=== PATIENT | male | born 2000 | race Caucasian/White ===

== ENCOUNTER 2021-01-02 16:17 | Emergency (ER) | payer OTHER, MEDICAID, SELFPAY ==
[2021-01-02 16:18] VITALS: BP 145/65; PULSE 103; RESP 14; TEMP 37.1; O2SAT 100; BMI 26.4
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
[2021-01-02] MEDS: Smz/Tmp Ds Tablet 1 TABLET PO (16:50)
[2021-01-02] MEDS: Cephalexin 250 MG Capsule 500 MG PO (16:50)
[2021-01-02 18:34] VITALS: BP 148/99; PULSE 99; RESP 16; O2SAT 99
--- NOTE | 2021-01-02 18:35 | ED.RN ---
PT AND MOTHER EDUCATED ON WRITTEN AND VERBAL DISCHARGE INSTRUCTIONS, HOME GOING PRESCRIPTIONS AND REFERRAL TO PCP. EDUCATED TO TAKE ANTIBIOTICS UNTIL THE PRESCRIPTION IS COMPLETED. PT VERBALIZES UNDERSTANDING OF INSTRUCTIONS AND DENIES ANY FURTHER QUESTIONS. AMBULATORY OUT OF DEPT WITH MOTHER.
== END 2021-01-02 18:34 | disposition home or self-care (01) ==
PROVIDERS: Emergency Provider Student in an Organized Health Care Education/Training Program
DX: M70.52 Other bursitis of knee, left knee (principal); S80.212A Abrasion, left knee, initial encounter; S50.812A Abrasion of left forearm, initial encounter; V86.56XA Driver of dirt bike or motor/cross bike injured in nontraffic accident, initial encounter; Y93.55 Activity, bike riding; Y92.89 Other specified places as the place of occurrence of the external cause; Y99.8 Other external cause status
CPT/HCPCS: 73564; 99283

== ENCOUNTER 2023-06-12 10:14 | Emergency (ER) | payer MEDICAID, SELFPAY ==
[2023-06-12 10:15] VITALS: BP 132/78; PULSE 64; RESP 16; TEMP 36.6; O2SAT 100; BMI 25.2
--- NOTE | 2023-06-12 10:24 | EDS_ITS ---
HPI History of Present Illness Chief Complaint: Abd Pain [facility] Medical History no medical history Home Medications cephalexin 500 mg capsule 500 mg PO Q6 #40 CAPSULES 01/02/21 [Rx Last Taken Unknown] naproxen 500 mg tablet 500 mg PO BID PRN #20 tabs 01/02/21 [Rx Last Taken Unknown] sulfamethoxazole 800 mg-trimethoprim 160 mg tablet 1 tablet PO BID #14 TABLETS 01/02/21 [Rx Last Taken Unknown] omeprazole 20 mg capsule,delayed release 20 mg PO DAILY #30 CAPSULES 06/12/23 [Rx Last Taken Unknown] ondansetron 4 mg disintegrating tablet 4 mg PO Q8H PRN nausea and vomiting 3 days #9 tabs 06/12/23 [Rx Last Taken Unknown] Allergy/AdvReac Type Severity Reaction Status Date / Time No Known Allergies Allergy Verified 06/12/23 10:16 Social History (Updated 08/13/19 @ 12:54 by Darlene Monreal DIRECTOR SYSTEMS, DIRECTOR SYSTEMS-C) Smoking Status: Never smoker EXAM Physical Exam Const Vital Signs: 06/12/23 10:15 06/12/23 13:31 Temperature 98 F Temperature Source Temporal Pulse Rate 64 82 Respiratory Rate 16 16 Blood Pressure 132/78 H 129/79 H Blood Pressure Mean 96 Pulse Ox 100 97 Oxygen Delivery Method Room Air MDM MDM MDM Narrative Medical decision making narrative: HISTORY OF PRESENT ILLNESS: 22-year-old male here for 5 days abdominal pain nausea vomiting. He states he has diffuse abdominal pain. No history abdominal surgeries. Last bowel moveme nt several days ago. No melena or hematochezia noted no urinary symptoms noted. N Notes drinking alcohol just prior to this starting. No history of pancreatitis REVIEW OF SYSTEMS: Pertinent positives: Abdominal pain Pertinent negatives: Chest pain, constipation PHYSICAL EXAM: Nursing triage notes reviewed, Vital signs reviewed Constitutional: please see mdm HENT: MMM Eyes: Pupils equal round and reactive to light, Extraocular muscles intact Neck: No stridor, no JVD, full neck ROM Lungs: Clear to auscultation, No wheezing or rales. No increased work of breathing, no conversational dyspnea, no accessory muscle use, no nasal flaring. No respiratory distress noted Heart: Regular rate and rhythm, No murmurs, No rubs and No gallops, 2+ distal pulses (radial, femoral, posterior tibial) in all extremities Abdomen: Soft, there is no tenderness, rigidity, rebound or guarding, no obvious peritoneal signs, no palpable pulsatile abdominal masses, no auscultated abdominal bruit : No CVAT Extremities: No edema Neuro: No focal neurological deficits, cranial nerves II through XII intact, 5/5 strength in all extremities. Intact sensation to light touch in all extremities, 2+ reflexes bilateral patella tendons. Normal gait. No ataxia. Skin: No rash or lesions noted MEDICAL DECISION MAKING: Chief Complaint: Abdominal pain External records reviewed: No prior ED evaluations, imaging of the abdomen pelvis noted in the chart Factors affecting care: none Social determinants of health: none History obtained from others: none [] Consults: none ALL IMAGES (IF OBTAINED) HAVE BEEN PERSONALLY REVIEWED AND INTERPRETED BY MYSELF. CBC without leukocytosis, severe anemia, no thrombocytopenia. LFTs show no evidence of hepatobiliary pathology. Lipase is wnl indicating no pancreatic inflammation. BMP with evidence of severe dehydration with hypokalemia, EBONI, no anion gap to suggest endorgan hypoperfusion MDM Narrative: Patient was hemodynamically stable, afebrile, nontoxic-appearing I considered the following differential diagnosis: Gastritis, GERD, pancreatitis, acute cholecystitis, perforation or obstruction The patient abdominal exam was not consistent with an acute surgical process such as obstruction or perforation. Did obtain labs to rule out signs of systemic inflammation, hepatobiliary obstruction, signs of pancreatitis. Labs are remarkable for dehydration and acute kidney injury. Repeat abdominal exam is benign. I offer the patient another liter of fluid, further ED evaluation repeat labs. He stated he would like to go back to work. He refused further ED evaluation, observation, IV fluids or admission at this time. He stated he would go home take Zofran every 8 hours and drink plenty of oral fluids. Return if symptoms change or worsen. The patient is appropriate discharge home with oral Zofran. The patient and/or family, caregivers express understanding. The patient and/or family, caregivers agrees with the plan. Shared decision making: I will have a discussion with the patient and or visitors regarding risk/benefits of further testing or admission. They will be made aware of of the risk/benefits inherent in this decision they will be given the opportunity to voice understanding. Total critical care time today provided was at least 0 minutes. This excludes separately billable procedures. Critical care time (if documented) is secondary to the patient having high probability of clinically significant/life threatening deterioration in the patient's condition which required my urgent intervention. Impression: 1. Acute abdominal pain 2. Nausea and vomiting 3. EBONI 4. Dehydration Dispo: Discharge Lab Data Attestation: I reviewed the patient's lab results. Labs: Laboratory Results - last 24 hr 06/12/23 11:55 WBC 6.9 RBC 5.22 Hgb 16.7 H Hct 49.3 MCV 94.4 H MCH 32.0 MCHC 33.9 RDW Std Deviation 43.0 RDW Coeff of Mariana 12.3 Plt Count 205 MPV 11.4 Immature Gran % (Auto) 0.400 Neut % (Auto) 72.2 H Lymph % (Auto) 16.1 L Dougherty % (Auto) 8.4 Eos % (Auto) 2.2 Baso % (Auto) 0.7 Absolute Neuts (auto) 5.0 Absolute Lymphs (auto) 1.12 Nucleated RBC % 0 Sodium 137 Potassium 3.4 L Chloride 99 Carbon Dioxide 31.0 Anion Gap 7 BUN 20 H Creatinine 2.06 H Estim Creat Clear Calc 61.74 Est GFR (MDRD) Af Amer 52 L Est GFR (MDRD) Non-Af 43 L BUN/Creatinine Ratio 9.7 L Glucose 91 Calcium 9.3 Total Bilirubin 0.90 Direct Bilirubin 0.24 AST 20 ALT 56 Alkaline Phosphatase 90 Total Protein 8.3 H Albumin 4.1 Globulin 4.2 Lipase 24 Discharge Plan Triage Chief Complaint: Abd Pain ED Provider: Cordell Rivas Dx/Rx/DC Orders Instructions: ED Abd Pain Unknown ... Prescriptions: New ondansetron 4 mg tablet,disintegrating 4 mg PO Q8H PRN (Reason: nausea and vomiting) 3 Days Qty: 9 0RF omeprazole 20 mg capsule,delayed release(DR/EC) 20 mg PO DAILY Qty: 30 0RF No Action sulfamethoxazole-trimethoprim 1 TABLET tablet 1 tablet PO BID Qty: 14 0RF cephalexin 500 MG capsule 500 mg PO Q6 Qty: 40 0RF naproxen 500 MG tablet 500 mg PO BID PRN Qty: 20 0RF Stand Alone Forms: ED Work / School Excuse Primary Care Provider: Care Physician,No Primary Referrals: Falguni Billingsley MD [Med Staff - Fabrics And Material Cutter] - Friend,DO Oleksandr [Med Staff - Active Staff] - Activity Restrictions/Additional Instructions: Thank you for trusting us with your care today! Please take Tylenol (2 pills, 650 mg), ibuprofen (2 pills, 400 mg) every 6 hours as needed for pain and fever control. Please take Zofran as needed for nausea. Please refrain from excessive alcohol intake. Please return to the emergency department if your symptoms change or worsen. Specifically if you develop worsening abdominal pain, vomiting that is not controlled by Zofran. Please follow with your primary care physician for further outpatient evaluation and management. Disposition Disposition: Home, Self Care Discharge Date/Time: 06/12/23 13:34
[2023-06-12] MEDS: Ketorolac 15 MG/ML Vial IV (11:52)
[2023-06-12] MEDS: Ondansetron 4 MG/2 ML Vial IV (11:53)
[2023-06-12] MEDS: 0.9% Normal Saline (1000mL) 1,000 ML 1000 ML IV (11:53)
--- NOTE | 2023-06-12 12:10 | CM.ED ---
Social Work Note Referral Source: case find Referral Reason: no PCP SW met with patient and introduced herself and role as [facility] Retail Account Manager. Patient lying on hospital bed and agreeable to speak with SW. SW inquired about patient's insurance and current PCP. Patient verified insurance and reports no current PCP. SW provided patient with a list of local PCPs in network with patient's insurance and accepting new patients. Patient was receptive towards list and voiced no other needs. SW remains available if needs arise. Emeli Giraldo MSW, ISIDRO
[2023-06-12 12:17] LABS: Absolute Lymphocyte Count 1.12 X10^3/uL (0.83-4.51); Basophil# 0.05 X10^3/uL; Basophil% 0.7 % (0-1); Eosinophil# 0.15 X10^3/uL; Eosinophils% 2.2 % (0-5); Hematocrit 49.3 % (40-54); Hemoglobin 16.7 g/dL (13.0-16.5); Lymphocyte # 1.12 X10^3/ul (0.83-4.51); Lymphocyte % 16.1 % (19-41); Mean Corp Hgb Conc 33.9 g/dL (32-36); Mean Corpuscular Volume 94.4 fL (80-94); Mean Platelet Vol. 11.4 fl (6.2-12.0); Monocyte# 0.58 X10^3/uL; Monocyte% 8.4 % (0-10); NRBC Flagged by Analyzer 0 % (0-5); Neutrophil # 5.01 X10^3/uL (2.7-7.7); Neutrophil % 72.2 % (47-70); Platelet Count 205 K/mm3 (150-450); RBC Distribution Width CV 12.3 % (11.6-14.6); Red Blood Count 5.22 M/mm3 (4.6-6.2); White Blood Count 6.9 K/mm3 (4.4-11.0)
[2023-06-12 12:26] LABS: AST(SGOT) 20 U/L (15-37); Alanine Aminotransfer ALT/SGPT 56 U/L (16-61); Albumin, Serum 4.1 g/dL (3.2-5.0); Alkaline Phosphatase 90 U/L (45-117); Bilirubin, Direct 0.24 mg/dL (0.00-0.30); Globulin 4.2 g/dL (2.2-4.2); Lipase 24 U/L (13-75); Protein, Total 8.3 g/dL (6.4-8.2)
[2023-06-12 13:18] LABS: Anion Gap 7 (5-15); BUN 20 mg/dL (7-18); BUN/Creat Ratio 9.7 RATIO (10-20); Calcium,Total 9.3 mg/dL (8.5-10.1); Chloride 99 mmol/L (98-107); Creatinine, Serum 2.06 mg/dL (0.70-1.30); EST Glomerular Filtration Rate 43 mL/min (>60); Est Glom Filt Rate - Afr Amer 52 mL/min (>60); Estimated Creatinine Clearance 61.74 ml/min; Glucose 91 mg/dL (74-106); Potassium 3.4 mmol/L (3.5-5.1); Sodium Level 137 mmol/L (136-145)
[2023-06-12 13:31] VITALS: BP 129/79; PULSE 82; RESP 16; O2SAT 97
== END 2023-06-12 13:34 | disposition home or self-care (01) ==
PROVIDERS: Emergency Provider Emergency Medicine; Visit Provider Emergency Medicine
DX: R10.9 Unspecified abdominal pain (principal); N17.9 Acute kidney failure, unspecified; R11.2 Nausea with vomiting, unspecified; E86.0 Dehydration; Z79.899 Other long term (current) drug therapy
CPT/HCPCS: 80048; 80076; 83690; 85025; 96361; 96374; 96375; 99283; J7030; J2405